=== PATIENT | male | born 1990 | race Caucasian/White ===

== ENCOUNTER 2018-05-20 05:01 | Emergency (ER) | payer SELFPAY ==
[~2018-05-20] VITALS: Ht 167.6 cm; Wt 68.0 kg
[2018-05-20] MEDS ORDERED: ONDANSETRON HCL 4MG/2ML INJ IV STA (06:34)
[2018-05-20] MEDS ORDERED: KETOROLAC 30MG/ML VIAL IV STA (06:34)
[2018-05-20] MEDS ORDERED: CHLORDIAZEPOXIDE 25MG CAPSULE PO ONE (06:45)
[2018-05-20 07:20] LABS: BASOPHILS % 0.4 % (0.0-2.0); CHLORIDE 99 mEq/L (98-107); EOSINOPHILS % 0.1 % (0.0-5.0); HEMATOCRIT. 43.9 % (42.0-52.0); HEMOGLOBIN. 15.3 g/dL (14.0-18.0); LYMPHOCYTES % 15.4 % (20.0-50.0); MEAN CORPUSCULAR HEMOGLOBIN 31.3 pg (28.0-32.0); MEAN CORPUSCULAR VOLUME 89.9 fL (80.0-94.0); MEAN PLATELET VOLUME 7.5 fl (7.4-10.4); MONOCYTES % 6.8 % (2.0-8.0); NEUTROPHILS % 77.3 % (40.0-76.0); PLATELET 197 x1000/uL (130-400); RED BLOOD CELL COUNT 4.88 mill/uL (4.7-6.1); RED CELL DISTRIBUTION WIDTH 13.1 % (11.6-14.6)
[2018-05-20 07:23] LABS: PROTHROMBIN TIME 10.3 sec (9.1-11.1)
[2018-05-20 08:56] VITALS: BP 130/83
== END 2018-05-20 09:01 | disposition home or self-care (01) ==
LOC: ER 05:01
DX: R10.13 Epigastric pain (principal); F10.239 Alcohol dependence with withdrawal, unspecified; Y90.9 Presence of alcohol in blood, level not specified
CPT/HCPCS: 36415; 80053; 83690; 85025; 85610; 96374; 96375; 99283; J1885; J2405

== ENCOUNTER 2018-12-14 19:07 | Emergency (ER) | payer SELFPAY ==
[~2018-12-14] VITALS: Ht 170.2 cm; Wt 73.0 kg
[2018-12-14] MEDS ORDERED: SODIUM CHLORIDE 0.9% 1,000 ML IV ONE (19:30)
[2018-12-14 19:58] LABS: BASOPHILS % 0.3 % (0.0-2.0); EOSINOPHILS % 0.1 % (0.0-5.0); HEMATOCRIT. 43.3 % (42.0-52.0); LYMPHOCYTES % 11.1 % (20.0-50.0); MEAN CORPUSCULAR HEMOGLOBIN 30.9 pg (28.0-32.0); MEAN CORPUSCULAR VOLUME 89.5 fL (80.0-94.0); MEAN PLATELET VOLUME 7.2 fl (7.4-10.4); MONOCYTES % 6.6 % (2.0-8.0); NEUTROPHILS % 81.9 % (40.0-76.0); PLATELET 209 x1000/uL (130-400); RED BLOOD CELL COUNT 4.84 mill/uL (4.7-6.1)
[2018-12-14 20:03] LABS: CHLORIDE 92 mEq/L (98-107)
[2018-12-14 20:07] LABS: ETHANOL BLOOD < 10 mg/dL
[2018-12-14] MEDS ORDERED: LEVETIRACETAM 500MG PREMIX 100 ML IV ONE (22:30)
[2018-12-14 23:35] VITALS: BP 123/78
== END 2018-12-14 23:46 | disposition home or self-care (01) ==
LOC: ER 19:07
DX: S01.512A Laceration without foreign body of oral cavity, initial encounter (principal); G40.909 Epilepsy, unspecified, not intractable, without status epilepticus; X58.XXXA Exposure to other specified factors, initial encounter; Y93.89 Activity, other specified; Y92.89 Other specified places as the place of occurrence of the external cause; Y99.8 Other external cause status
CPT/HCPCS: 36415; 70450; 80053; 80320; 85025; 93005; 96361; 96365; 99284; J1953; J7030; G0480

== ENCOUNTER 2020-02-29 20:00 | Emergency (ER) | payer SELFPAY ==
[~2020-02-29] VITALS: Ht 170.2 cm; Wt 75.0 kg
[2020-02-29] MEDS ORDERED: FOLIC ACID 1 MG, THIAMINE HCL 100 MG, MVI, ADULT NO.1 10 ML in DEXTROSE 5% WATER 1,000 ML IV STA ×4 (21:13)
[2020-02-29] MEDS ORDERED: SODIUM CHLORIDE 0.9% 1,000 ML IV ONE (21:15)
[2020-02-29 21:41] LABS: BASOPHILS % 0.6 % (0.0-2.0); EOSINOPHILS % 0.2 % (0.0-5.0); HEMATOCRIT. 44.3 % (42.0-52.0); HEMOGLOBIN. 15.2 g/dL (14.0-18.0); LYMPHOCYTES % 29.7 % (20.0-50.0); MEAN CORPUSCULAR HEMOGLOBIN 30.9 pg (28.0-32.0); MEAN PLATELET VOLUME 6.8 fl (7.4-10.4); MONOCYTES % 9.1 % (2.0-8.0); NEUTROPHILS % 60.4 % (40.0-76.0); PLATELET 338 x1000/uL (130-400); RED BLOOD CELL COUNT 4.92 mill/uL (4.7-6.1); RED CELL DISTRIBUTION WIDTH 14.7 % (11.6-14.6)
[2020-02-29 21:44] LABS: CHLORIDE 107 mEq/L (98-107)
[2020-02-29 21:46] LABS: PROTHROMBIN TIME 10.2 sec (9.6-11.0)
[2020-02-29 21:52] LABS: CREATINE KINASE 309 IU/L (39-308)
[2020-02-29 22:04] LABS: ETHANOL BLOOD 300 mg/dL
[2020-02-29] MEDS ORDERED: KCL 10MEQ/50ML PREMIX 50 ML IV ONE (23:30)
[2020-03-01 00:23] LABS: CLARITY URINE CLEAR (CLEAR); COLOR URINE YELLOW (YELLOW); KETONES URINE TRACE (NEGATIVE); LEUKOCYTE ESTERASE URINE NEGATIVE (NEGATIVE); NITRITE URINE NEGATIVE (NEGATIVE); OCCULT BLOOD URINE NEGATIVE (NEGATIVE); PROTEIN URINE NEGATIVE (NEGATIVE); SPECIFIC GRAVITY URINE 1.016 (1.005-1.030)
[2020-03-01 00:47] LABS: *AMPHETAMINES SCREEN URINE NEGATIVE (NEGATIVE); *BARBITURATES SCREEN URINE NEGATIVE (NEGATIVE); *BENZODIAZEPINES SCREEN URINE NEGATIVE (NEGATIVE)
[2020-03-01 00:48] LABS: *COCAINE SCREEN URINE NEGATIVE (NEGATIVE); CANNABINOID URINE SCREEN NEGATIVE (NEGATIVE); METHADONE URINE SCREEN NEGATIVE (NEGATIVE); OPIATES URINE SCREEN NEGATIVE (NEGATIVE); PHENCYCLIDINE URINE SCREEN NEGATIVE (NEGATIVE)
[2020-03-01 07:09] VITALS: BP 119/85
== END 2020-03-01 07:20 | disposition home or self-care (01) ==
LOC: ER 20:00
DX: F10.129 Alcohol abuse with intoxication, unspecified (principal); E87.2 Acidosis; Y90.8 Blood alcohol level of 240 mg/100 ml or more
CPT/HCPCS: 36415; 70450; 71045; 80053; 80305; 80320; 81003; 82140; 82550; 83605; 83690; 84443; 84484; 85025; 85610; 86850; 86900; 86901; 93005; 96361; 96365; 96366; 96368; 99285; J3411; J3480; J3490; J7030; J7070; G0480

== ENCOUNTER 2020-11-29 08:22 | Emergency (ER) | payer MEDICAID ==
[~2020-11-29] VITALS: Ht 170.2 cm; Wt 70.0 kg
[2020-11-29] MEDS ORDERED: FAMOTIDINE 20MG/2ML VIAL IV STA (08:29)
[2020-11-29] MEDS ORDERED: MORPHINE SULFATE 4 MG/ML CPJ (NOT FOR IM USE) IV STA (08:29)
[2020-11-29] MEDS ORDERED: ONDANSETRON HCL 4MG/2ML INJ IV STA (08:29)
[2020-11-29] MEDS ORDERED: SODIUM CHLORIDE 0.9% 1,000 ML IV ONE (08:30)
[2020-11-29 08:47] LABS: BASOPHILS % 0.8 % (0.0-2.0); EOSINOPHILS % 0.2 % (0.0-5.0); HEMATOCRIT. 42.7 % (42.0-52.0); HEMOGLOBIN. 15.2 g/dL (14.0-18.0); MEAN CORPUSCULAR HEMOGLOBIN 31.9 pg (28.0-32.0); MEAN CORPUSCULAR VOLUME 89.8 fL (80.0-94.0); MONOCYTES % 9.8 % (2.0-8.0); NEUTROPHILS % 48.2 % (40.0-76.0); PLATELET 191 x1000/uL (130-400); RED BLOOD CELL COUNT 4.75 mill/uL (4.7-6.1); RED CELL DISTRIBUTION WIDTH 15.2 % (11.6-14.6)
[2020-11-29 08:53] LABS: CHLORIDE 102 mEq/L (98-107)
[2020-11-29 08:57] LABS: ETHANOL BLOOD 191 mg/dL; PROTHROMBIN TIME 10.9 sec (9.6-11.0)
[2020-11-29] MEDS ORDERED: LEVETIRACETAM 1000MG PREMIX 100 ML IV ONE (10:15)
[2020-11-29] MEDS ORDERED: ONDANSETRON HCL 4MG/2ML INJ IV ONE (11:30)
[2020-11-29] MEDS ORDERED: IBUP-2028 PO (12:00)
[2020-11-29] MEDS ORDERED: ONDA4TAB5 PO (12:00)
[2020-11-29 12:16] VITALS: BP 133/88
== END 2020-11-29 12:20 | disposition home or self-care (01) ==
LOC: ER 08:25
DX: R10.84 Generalized abdominal pain (principal); R16.0 Hepatomegaly, not elsewhere classified; F10.10 Alcohol abuse, uncomplicated; G40.909 Epilepsy, unspecified, not intractable, without status epilepticus; K76.9 Liver disease, unspecified; Y90.6 Blood alcohol level of 120-199 mg/100 ml
CPT/HCPCS: 36415; 74176; 80053; 80320; 83690; 85025; 85610; 96361; 96365; 96375; 96376; 99284; J1953; J2270; J2405; J3490; J7030; Z7610; G0480

== ENCOUNTER 2021-04-10 12:27 | Emergency (ER) | payer MEDICAID ==
[~2021-04-10] VITALS: Ht 160 cm; Wt 77.0 kg
[~2021-04-10 12:27] MED LIST: IBUP-2028 PO; ONDA4TAB5 PO
[2021-04-10 12:34] VITALS: BP 136/80
[2021-04-10] MEDS ORDERED: ONDANSETRON 4MG ODT PO ONE (14:45)
== END 2021-04-10 15:06 | disposition left against medical advice (07) ==
LOC: ER 12:27
DX: F10.229 Alcohol dependence with intoxication, unspecified (principal); G40.909 Epilepsy, unspecified, not intractable, without status epilepticus; K76.9 Liver disease, unspecified; Y90.9 Presence of alcohol in blood, level not specified
CPT/HCPCS: 93005; 99283; Q0162